=== PATIENT | male | born 1955 | race African-American/Black ===

== ENCOUNTER 2016-09-04 11:58 | Emergency (ER) | payer BC, OTHER ==
[~2016-09-04] VITALS: Ht 182.9 cm; Wt 81.7 kg
== END 2016-09-04 13:20 | disposition left against medical advice (07) ==
LOC: ER 11:58
DX: M54.2 Cervicalgia (principal); Z53.21 Procedure and treatment not carried out due to patient leaving prior to being seen by health care provider

== ENCOUNTER 2016-09-06 14:20 | Emergency (ER) | payer BC, OTHER ==
[~2016-09-06] VITALS: Ht 182.9 cm; Wt 82.6 kg
[2016-09-06] MEDS ORDERED: NORFLEX100 MG PO (14:46)
[2016-09-06] MEDS ORDERED: PREDNISONE 20 M20 MG PO (14:46)
== END 2016-09-06 15:17 | disposition home or self-care (01) ==
LOC: ER 14:20
DX: S16.1XXA Strain of muscle, fascia and tendon at neck level, initial encounter (principal); F17.210 Nicotine dependence, cigarettes, uncomplicated; Z90.89 Acquired absence of other organs; Z88.1 Allergy status to other antibiotic agents; Z88.6 Allergy status to analgesic agent; Z88.5 Allergy status to narcotic agent; V43.52XA Car driver injured in collision with other type car in traffic accident, initial encounter; Y93.I9 Activity, other involving external motion; Y92.488 Other paved roadways as the place of occurrence of the external cause; Y99.9 Unspecified external cause status